=== PATIENT | female | born 2000 | race African-American/Black ===

== ENCOUNTER 2024-06-08 11:39 | Emergency (ER) | payer OTHER ==
[~2024-06-08] VITALS: Ht 160 cm; Wt 76.0 kg
[2024-06-08 11:39] VITALS: TEMP 97.9
[2024-06-08] MEDS ORDERED: ACET325C5 PO (12:43)
[2024-06-08 14:19] LABS: BASO % 0.2 % (0.0-1.0); EOS % 0.2 % (0.0-3.0); HEMATOCRIT 37.5 % (36.0-47.0); HEMOGLOBIN 12.8 g/dl (12.0-15.5); LYMPH # 0.7 10^3/uL (1.5-5.0); LYMPH % 5.4 % (24.0-44.0); MEAN CORPUSCULAR HEMOGLOBIN 30.4 pg (27.0-33.0); MEAN CORPUSCULAR HGB CONC 34.1 g/dl (32.0-36.5); MEAN CORPUSCULAR VOLUME 89.1 fl (80.0-96.0); MONO # 0.6 10^3/uL (0.0-0.8); MONO % 4.6 % (2.0-8.0); NEUTROPHILS # 10.8 10^3/uL (1.5-8.5); NEUTROPHILS % 89.2 % (36.0-66.0); RED BLOOD COUNT 4.21 10^6/uL (4.00-5.40); WHITE BLOOD COUNT 12.1 10^3/uL (4.0-10.0)
[2024-06-08] MEDS: KETOROLAC 30 MG/ML 1ML VIAL IV ONE (14:44)
[2024-06-08] MEDS: ONDANSETRON 4MG 2ML VIAL IV ONE (14:44)
[2024-06-08] MEDS: NS 1,000 ML IV ONE (14:45)
[2024-06-08 14:48] LABS: ALBUMIN 3.5 G/DL (3.2-5.2); ALKALINE PHOSPHATASE 93 U/L (46-116); ALT/SGPT 20 U/L (7.0-40); AST/SGOT 31 U/L (<34); BILIRUBIN,DIRECT 0.2 MG/DL (<0.4); BILIRUBIN,TOTAL 0.6 MG/DL (0.3-1.2); BLOOD UREA NITROGEN 9 MG/DL (9-23); CALCIUM LEVEL 9.2 MG/DL (8.5-10.1); CARBON DIOXIDE LEVEL 21 MMOL/L (20-31); CHLORIDE LEVEL 104 MMOL/L (98-107); CREATININE FOR GFR 0.67 MG/DL (0.55-1.30); GLOMERULAR FILTRATION RATE > 60.0 (>60); GLUCOSE, FASTING 68 MG/DL (60-100); POTASSIUM SERUM 4.3 MMOL/L (3.5-5.1); SODIUM LEVEL 134 MMOL/L (136-145)
[2024-06-08 15:15] LABS: HCG, SERUM QUALITATIVE NEGATIVE (NEGATIVE)
[2024-06-08 16:28] VITALS: BP 131/76; O2SAT 100
[2024-06-08] MEDS ORDERED: NITR100C3 PO (18:10)
[2024-06-08] MEDS ORDERED: NAPR-837 PO (18:10)
[2024-06-08] MEDS: NITROFURANTOIN (MACROBID) 100 MG CAP PO ONE (18:37)
[2024-06-08] MEDS: NAPROXEN 250 MG TAB PO ONE (18:37)
== END 2024-06-08 18:44 | disposition home or self-care (01) ==
LOC: M ED 11:39
DX: N30.00 Acute cystitis without hematuria (principal); N83.202 Unspecified ovarian cyst, left side; Z79.1 Long term (current) use of non-steroidal anti-inflammatories (NSAID); Z79.899 Other long term (current) drug therapy
CPT/HCPCS: 74176; 76830; 76856; 80048; 80076; 81001; 84703; 85025; 87086; 93976; 96361; 96374; 99284; J1885; J2405